=== PATIENT | female | born 1965 | race Caucasian/White ===

== ENCOUNTER 2018-05-15 11:28 | Emergency (ER) | payer SELFPAY ==
--- NOTE | 2018-05-15 12:02 | ED Physician Documentation ---
Fall - HISTORIAN Historian: patient, spouse - HPI Stated Complaint: fall Chief Complaint: Fall Additional Information: pt at work slipped on slick tile floor fell on rt hip and buttocks w/ rt hip and rt lumbar pain Onset: just prior to arrival Where: work Context: slipped, lost balance r: moderate Associated Symptoms:: no loss of consciousness Location of Pain/Injury: lower back, lower extremity, hip Injury to Right Extremity: hip Injury to Left Extremity: none - ROS CONST: no problems, other (no radicular pain). denies: recent illness, fever, sweating, weakness NEURO: depression MS/SKIN/LYMPH: back pain. denies: weakness, numbness, neck pain, ankle swelling EYES/ENT: none CVS/RESP: none GI/: denies: problems urinating, nausea, vomiting - PAST HX Past History: other (depression anxiety) Allergies/Adverse Reactions: Allergies Allergy/AdvReac Type Severity Reaction Status Date / Time No Known Allergies Allergy Verified 05/15/18 11:41 Home Medications: Ambulatory Orders Medication Instructions Recorded Lamotrigine [Lamotrigine ER] 50 mg PO DAILY 01/08/14 Levothyroxine Sodium [Levoxyl] 88 mcg PO DAILY 01/08/14 Propranolol HCl [Inderal] 10 mg PO BID 01/08/14 Sertraline HCl [Zoloft] 100 mg PO QD 01/08/14 Orphenadrine Citrate [Norflex] 100 mg PO BID PRN #30 tab 05/15/18 - SOCIAL HX Smoking History: non-smoker Alcohol Use: other (in past) Drug Use: none - FAMILY HX Family History: none - VITAL SIGNS Vital Signs: Vital Signs Temp Pulse Resp BP Pulse Ox 98.2 F 56 L 19 128/57 97 05/15/18 11:45 05/15/18 11:45 05/15/18 11:45 05/15/18 11:45 05/15/18 11:45 - REVIEWED ASSESSMENTS Nursing Assessment Reviewed: Yes Vitals Reviewed: Yes ED Results Lab/Radiology - Radiology Radiology Impressions: no fx seen but sl sponcylisis and early djd - Orders Orders: ED Orders Category Date Time Status L SPINE 2 OR 3 VIEWS [RAD] Stat Exams 05/15/18 Ordered RT HIP 2VIEW COMPLETE [RAD] Stat Exams 05/15/18 Ordered Fall Physical Exam - Physical Exam General Appearance: moderate distress Head: non-tender, no swelling Neck: non-tender, painless ROM ENT: nml external inspection Resp/CVS: chest non-tender, no ecchymosis, breath sounds nml, no resp. distress , heart sounds nml Abdomen: soft, non-tender Neuro: oriented x3, sensation nml, motor nml, mood/affect nml Skin: color nml, no rash Back: CVA tenderness (R), muscle spasm, vertebral tenderness Joint: limited ROM, painful - Erich Coma Score Eyes Open: Spontaneous Speech: Oriented Motor: Obeys Commands Discharge Clincal Impression: fall w/lo back and lt hip sprain Prescriptions: Orphenadrine Citrate [Norflex] 100 mg PO BID PRN #30 tab PRN Reason: muscle relaxant Referrals: Yamini Mcgovern FNP [Primary Care Provider] - 2 Days Condition: Good Disposition: 01 HOME, SELF-CARE Decision to Admit: NO Decision Time: 13:20
[2018-05-15 12:17] VITALS: BP 128/57
--- NOTE | 2018-05-15 12:54 | Diagnostic Imaging Report ---
SOLANGE JOE [facility] [id number] Count Includes [facility] [address] [address] Report Submission Date: May 15, 2018 12:35:56 PM CDT Patient Study Name: NISREEN CHI Date: May 15, 2018 12:04:50 PM CDT Modality Type: DX Gender: F Description: PELVIS : 67 Institution: [facility] Physician: SOLANGE JOE Right hip 2 views Clinical history: Trauma No visible fracture, dislocation or bone destruction. No soft tissue calcification. Impression: Normal right hip Electronically signed on May 15, 2018 12:35:56 PM CDT by: Emmanuel GRAVES
--- NOTE | 2018-05-15 12:55 | Diagnostic Imaging Report ---
SOLANGE JOE [facility] [address] [facility] [address] [address] Report Submission Date: May 15, 2018 12:36:58 PM CDT Patient Study Name: NISREEN CHI Date: May 15, 2018 12:13:10 PM CDT Modality Type: DX Gender: F Description: SPINE : 67 Institution: [facility] Physician: SOLANGE JOE Lumbar spine 3 views Clinical history: Trauma, history of fall Moderate lumbar spondylosis with narrowing of the disc space at L5/S1 and marginal spur throughout the lumbar spine. No visible fractures, dislocation or bone destruction. Impression: Lumbar spondylosis without visible fractures Electronically signed on May 15, 2018 12:36:58 PM CDT by: Emmanuel GRAVES
== END 2018-05-15 13:23 | disposition home or self-care (01) ==
LOC: ED 11:28
DX: S39.012A Strain of muscle, fascia and tendon of lower back, initial encounter (principal); S73.102A Unspecified sprain of left hip, initial encounter; W19.XXXA Unspecified fall, initial encounter; Y92.59 Other trade areas as the place of occurrence of the external cause; Y93.9 Activity, unspecified; Y99.9 Unspecified external cause status; Z04.2 Encounter for examination and observation following work accident
CPT/HCPCS: 72100; 73502; 99284